=== PATIENT | male | born 1985 | race Caucasian/White ===

== ENCOUNTER 2018-02-10 13:32 | Emergency (ER) | payer OTHER ==
[~2018-02-10] VITALS: Ht 177.8 cm; Wt 96.0 kg
[2018-02-10 13:34] VITALS: BP 144/78
== END 2018-02-10 14:24 | disposition home or self-care (01) ==
LOC: ED 14:00
DX: J01.00 Acute maxillary sinusitis, unspecified (principal); F17.210 Nicotine dependence, cigarettes, uncomplicated
CPT/HCPCS: 71046; 99284

== ENCOUNTER 2018-02-14 02:34 | Emergency (ER) | payer OTHER ==
[~2018-02-14] VITALS: Ht 177.8 cm; Wt 98.2 kg
[2018-02-14] MEDS ORDERED: DIPHENHYDRAMINE 50 MG/ML, 1ML IVPush ONE (04:00)
[2018-02-14] MEDS ORDERED: KETOROLAC 30 MG/1 ML IVPush ONE (04:00)
[2018-02-14] MEDS ORDERED: PROCHLORPERAZINE 5 MG/ML, 2ML IVPush ONE (04:00)
[2018-02-14] MEDS ORDERED: PROCHLORPERAZINE 5 MG/ML, 2ML ONE (04:12)
[2018-02-14] MEDS ORDERED: KETOROLAC 30 MG/1 ML ONE (04:12)
[2018-02-14] MEDS ORDERED: DIPHENHYDRAMINE 50 MG/ML, 1ML ONE (04:12)
[2018-02-14 05:56] VITALS: BP 115/50
== END 2018-02-14 05:58 | disposition home or self-care (01) ==
LOC: ED 05:26
DX: G44.219 Episodic tension-type headache, not intractable (principal); G43.909 Migraine, unspecified, not intractable, without status migrainosus
CPT/HCPCS: 96374; 96375; 99284; J0780; J1200; J1885